=== PATIENT | male | born 1995 | race Caucasian/White ===

== ENCOUNTER 2016-10-26 14:37 | Outpatient (CLI) | payer OTHER, SELFPAY ==
[2016-10-26 15:01] LABS: #Basophils 0.1 thou/uL (0.0-0.2); #Eosinphils 0.2 thou/uL (0.0-0.7); #Lymphocytes 2.1 thou/uL (1.20-3.40); #Monocytes 0.4 thou/uL (0.11-0.59); #Neutrophils 4.2 thou/uL (1.40-6.50); %Lymphocytes 29.8 % (21.0-51.0); %Neutrophils 60.3 % (42.0-75.0); Hemoglobin 15.1 g/dL (14.0-18.0); Mean Corpuscular HGB CONC 33.9 g/dL (32.0-36.0); Mean Corpuscular Hemoglobin 28.6 pg (27.0-31.0); Mean Corpuscular Volume 84.2 fl (80.0-94.0); Mean Platelet Volume 9.2 fL (7.4-10.4); Platelet Count 226 thou/uL (130-400); RBC Distribution Width 11.6 % (11.5-14.5); White Blood Cell (WBC) Count 6.9 thou/uL (4.8-10.8)
[2016-10-26 15:16] LABS: ALT (SGPT) 11 U/L (0-55); AST (SGOT) 10 U/L (5-34); Albumin 4.6 g/dL (3.5-5.0); Alkaline Phosphatase 66 U/L (40-150); Anion Gap 12 mmol/L (10-20); BUN (Urea Nitrogen) 8 mg/dL (8.9-20.6); Bilirubin, Total 0.8 mg/dL (0.2-1.2); Calc. Creatinine Clearance 0 mL/min (70-130); Calcium 9.9 mg/dL (7.8-10.44); Carbon Dioxide 24 mmol/L (22-29); Cardiac Risk 3.8 (Less than 4.5); Chloride 107 mmol/L (98-107); Cholesterol 161 mg/dL (< 200 Desired); Estimated GFR-MDRD Greater than 90; Globulin 2.8 g/dL (2.4-3.5); Glucose 96 mg/dL (70-105); HDL Cholesterol 42 mg/dL (>60 Neg Risk); LDL Cholesterol, Calculated 100 mg/dL; Potassium 4.3 mmol/L (3.5-5.1); Protein, Total 7.4 g/dL (6.0-8.3); Sodium 139 mmol/L (136-145); Triglycerides 97 mg/dL (Less than 150)
== END 2016-10-26 14:38 ==
LOC: MADLABBHPM 14:37
PROVIDERS: ATTEND Family Medicine
DX: Z00.00 Encounter for general adult medical examination without abnormal findings (principal)
CPT/HCPCS: 36415; 80053; 80061; 85025

== ENCOUNTER 2017-05-01 16:31 | Emergency (ER) | payer OTHER ==
[2017-05-01] MEDS ORDERED: Benzonatate 100 MG CAP ONE (20:02)
[2017-05-01] MEDS ORDERED: AMOXicillin 250 MG CAP ONE (20:02)
== END 2017-05-01 20:14 | disposition home or self-care (01) ==
LOC: MADERS 16:31
DX: J20.9 Acute bronchitis, unspecified (principal); F41.9 Anxiety disorder, unspecified; Z87.891 Personal history of nicotine dependence
CPT/HCPCS: 99283

== ENCOUNTER 2018-04-06 18:04 | Emergency (ER) | payer OTHER, SELFPAY ==
[2018-04-06] MEDS ORDERED: HYDROcodone/Acetaminophen 10/325 mg Tablet ONE (18:22)
[2018-04-06] MEDS ORDERED: Ibuprofen 800 MG TAB ONE (18:23)
[2018-04-06] MEDS ORDERED: Amoxicillin/Potassium Clav 875 MG TAB ONE (18:23)
== END 2018-04-06 18:34 | disposition home or self-care (01) ==
LOC: MADERS 18:04
DX: J20.9 Acute bronchitis, unspecified (principal); F41.9 Anxiety disorder, unspecified; Z87.891 Personal history of nicotine dependence
CPT/HCPCS: 99283

== ENCOUNTER 2020-06-20 14:20 | Emergency (ER) | payer SELFPAY ==
--- NOTE | 2020-06-20 15:04 | RAD ---
TWO VIEW CHEST: 06/20/20 HISTORY: Cough. No evidence of infiltrate. Heart and mediastinum unremarkable. Lungs appear clear. IMPRESSION: No acute findings. POS: [facility]
[2020-06-20] MEDS ORDERED: Dexamethasone 4 MG TAB ONE (15:49)
[2020-06-20] MEDS ORDERED: Benzonatate 100 MG CAP ONE (15:49)
== END 2020-06-20 15:53 | disposition home or self-care (01) ==
LOC: MADERS 14:20
DX: J20.8 Acute bronchitis due to other specified organisms (principal); F41.9 Anxiety disorder, unspecified; Z87.891 Personal history of nicotine dependence
CPT/HCPCS: 71046; J8540